=== PATIENT | female | born 1950 | race Caucasian/White ===

== ENCOUNTER 2021-07-18 00:33 | Inpatient (IN) ==
[2021-07-18] MEDS ORDERED: Naloxone 0.4 MG/ML INJ IVP PRN (03:06)
[2021-07-18] MEDS ORDERED: Sodium Bicarbonate 50 MEQ in 0.45 % Sodium Chloride 1,000 ML IVC SCH (04:30)
[2021-07-18] MEDS ORDERED: Tocilizumab 80 MG/4 ML MLS IVPB ONE (05:00)
[2021-07-18 05:20] LABS: Mean Platelet Volume 12.4 fL (9.4-12.4); Red Cell Distribution Width 14.2 % (11.5-14.5)
[2021-07-18 05:22] LABS: Basophils % 0.1 %; Hemoglobin 10.6 g/dL (11.5-15.4); Immature Granulocytes % 0.6 % (0-4); Lymphocytes # 1.4 K/mcL (0.6-4.6); Lymphocytes % 19.1 %; Mean Corpuscular HGB Conc 31.2 g/dL (31.6-35.5); Mean Corpuscular Hemoglobin 26.4 pg (28.0-33.3); Mean Corpuscular Volume 84.6 fL (83.0-100.0); Monocytes # 0.7 K/mcL (0.0-1.3); Monocytes % 9.3 %; Neutrophils # 5.1 K/mcL (1.6-8.9); Nucleated Red Blood Cells 0.3 /100 WBC (0); Red Blood Count 4.02 M/mcL (3.82-4.97); Segmented Neutrophils % 70.9 %; White Blood Count 7.2 K/mcL (4.3-11.1)
[2021-07-18 05:24] LABS: Platelet Count 69 K/mcL (140-400)
[2021-07-18] MEDS: Sodium Bicarbonate 50 MEQ in 0.45 % Sodium Chloride 1,000 ML IVC SCH (05:43)
[2021-07-18 05:44] LABS: Troponin I 0.06 ng/mL (< 0.04)
[2021-07-18 06:00] LABS: Blood Urea Nitrogen > 130 mg/dL (8-23); Calcium 7.8 mg/dL (8.6-10.3); Carbon Dioxide 14 mEq/L (23-29); Chloride 108 mEq/L (98-107); Creatine Kinase 1494 Units/L (30-223); Glucose 116 mg/dL (70-105); Potassium 3.7 mEq/L (3.5-5.1); Sodium 137 mEq/L (136-145); Thyroid Stimulating Hormone < 0.010 mcIU/mL (0.340-5.600); Uric Acid 16.8 mg/dL (2.3-7.6); eGFR For African Americans 7 (> 60); eGFR For Non-African Americans 6 (> 60)
[2021-07-18 06:09] LABS: VBG HCO3 14 mEq/L (21-27); VBG PCO2 31 mmHg (41-51); VBG PH 7.26 pH Units (7.32-7.42); VBG PO2 176 mmHg (25-50)
[2021-07-18] MEDS ORDERED: Dextrose Gel 15 GM/37.5 ML TUBE PO PRN ×2 (06:09)
[2021-07-18] MEDS ORDERED: D5% in Water 1,000 ML IVC PRN (06:09)
[2021-07-18] MEDS ORDERED: *HR* Dextrose 50 % in Water (Syg) 50 ML SYRINGE IVP PRN (06:09)
[2021-07-18 06:15] LABS: Fibrinogen 349 mg/dL (169-393)
[2021-07-18 06:16] LABS: D-Dimer 1684 ng/mLFEU (0-500)
[2021-07-18 06:43] LABS: Bacteria,Urine Few per hpf (None-Few); Bilirubin,Urine Negative (Negative); Blood,Urine Moderate (Negative); Clarity,Urine Ex.Turbid (Clear); Color,Urine Yellow (Yellow); Glucose,Urine (UA) Normal (Normal); Ketones,Urine Negative (Negative); Leukocyte Esterase,Urine Large (Negative); Mucus,Urine Few per lpf (None-Few); Nitrite,Urine Negative (Negative); PH,Urine 5.5 pH Units (5.0-8.0); Protein,Urine 70 mg/dL (Neg-Trace); RBC,Urine 30-50 per hpf (0-3); Specific Gravity,Urine 1.014 (1.010-1.025); Urobilinogen,Urine Normal (Normal); WBC,Urine TNTC per hpf (0-3)
[2021-07-18 06:48] LABS: Protein/Creatinine Ratio,Urine 0.96 mg/mg (0.00-0.20); Sodium, Urine 33.5 mEq/L
[2021-07-18 07:04] LABS: Albumin 2.9 g/dL (3.5-5.7); Bilirubin,Direct 0.2 mg/dL (0.0-0.2); Bilirubin,Indirect 0.3 mg/dL (0.0-1.0); Bilirubin,Total 0.5 mg/dL (0.3-1.0); Globulin 2.8 g/dL (2.4-3.5); Total Protein 5.7 g/dL (6.4-8.9)
[2021-07-18] MEDS ORDERED: Insulin LISPRO 300 UNITS/3 ML VIAL SUBQ SCH ×2 (07:30→21:00)
[2021-07-18] MEDS ORDERED: dexAMETHasone 4 MG TABLET PO SCH (09:00)
[2021-07-18 09:51] LABS: Albumin 2.8 g/dL (3.5-5.7); Bilirubin,Total 0.5 mg/dL (0.3-1.0); Calcium 7.8 mg/dL (8.6-10.3); Globulin 2.9 g/dL (2.4-3.5); Potassium 3.7 mEq/L (3.5-5.1); Total Protein 5.7 g/dL (6.4-8.9)
[2021-07-18 11:04] LABS: Estimated Average Glucose 140 mg/dl; Hemoglobin A1C 6.5 %
[2021-07-18] MEDS: Sodium Bicarbonate 150 MEQ in D5% in Water 1,000 ML IVC SCH (14:16)
[2021-07-18] MEDS: *HR* Heparin 5,000 UNIT/ML VIAL SQ SCH ×2 (14:17→20:17)
[2021-07-19] MEDS ORDERED: Acetaminophen 325 MG TABLET PO PRN (00:32)
[2021-07-19] MEDS: Sodium Bicarbonate 150 MEQ in D5% in Water 1,000 ML IVC SCH ×2 (01:19→18:15)
[2021-07-19 04:44] LABS: Bilirubin,Urine Negative (Negative); Blood,Urine Small (Negative); Clarity,Urine Clear (Clear); Color,Urine Colorless (Yellow); Glucose,Urine (UA) Normal (Normal); Ketones,Urine Negative (Negative); Leukocyte Esterase,Urine Moderate (Negative); Mucus,Urine Few per lpf (None-Few); Nitrite,Urine Negative (Negative); Protein,Urine 50 mg/dL (Neg-Trace); Specific Gravity,Urine 1.013 (1.010-1.025); Squamous Epithelial Cell,Urine Few per hpf (None-Few); Urobilinogen,Urine Normal (Normal); WBC,Urine 15-30 per hpf (0-3)
[2021-07-19] MEDS: *HR* Heparin 5,000 UNIT/ML VIAL SQ SCH ×3 (05:20→20:33)
[2021-07-19 06:53] LABS: Calcium 7.7 mg/dL (8.6-10.3); Potassium 3.2 mEq/L (3.5-5.1); Uric Acid 15.6 mg/dL (2.3-7.6)
[2021-07-19 11:58] LABS: Mean Platelet Volume 11.7 fL (9.4-12.4)
[2021-07-19 12:00] LABS: Basophils % 0.2 %; Hematocrit 34.1 % (35.3-44.9); Hemoglobin 11.2 g/dL (11.5-15.4); Immature Granulocytes % 1.3 % (0-4); Immature Platelets 6.2 % (1.1-6.1); Lymphocytes # 1.2 K/mcL (0.6-4.6); Lymphocytes % 20.1 %; Mean Corpuscular HGB Conc 32.8 g/dL (31.6-35.5); Mean Corpuscular Hemoglobin 26.5 pg (28.0-33.3); Mean Corpuscular Volume 80.6 fL (83.0-100.0); Monocytes # 0.6 K/mcL (0.0-1.3); Monocytes % 9.5 %; Neutrophils # 4.2 K/mcL (1.6-8.9); Red Blood Count 4.23 M/mcL (3.82-4.97); Red Cell Distribution Width 14.1 % (11.5-14.5); Segmented Neutrophils % 68.9 %; White Blood Count 6.1 K/mcL (4.3-11.1)
[2021-07-19] MEDS ORDERED: cefTRIAXone 1,000 MG in Water for inj. (sterile) 10 ML IVP SCH (12:00)
[2021-07-19] MEDS ORDERED: cefTRIAXone 1,000 MG in 0.9 % Sodium Chloride Mini Bag 100 ML IVPB SCH (12:00)
[2021-07-19 12:01] LABS: Platelet Count 91 K/mcL (140-400)
[2021-07-20] MEDS: *HR* Heparin 5,000 UNIT/ML VIAL SQ SCH ×3 (05:06→20:19)
[2021-07-20] MEDS: Sodium Bicarbonate 150 MEQ in D5% in Water 1,000 ML IVC SCH (05:06)
[2021-07-20 06:10] LABS: Basophils % 0.2 %; Eosinophils % 0.2 %; Hematocrit 35.1 % (35.3-44.9); Hemoglobin 11.7 g/dL (11.5-15.4); Immature Granulocytes % 1.3 % (0-4); Lymphocytes # 1.2 K/mcL (0.6-4.6); Lymphocytes % 22.6 %; Mean Corpuscular HGB Conc 33.3 g/dL (31.6-35.5); Mean Corpuscular Hemoglobin 27.5 pg (28.0-33.3); Mean Corpuscular Volume 82.4 fL (83.0-100.0); Mean Platelet Volume 11.7 fL (9.4-12.4); Monocytes # 0.6 K/mcL (0.0-1.3); Monocytes % 10.7 %; Neutrophils # 3.4 K/mcL (1.6-8.9); Platelet Count 108 K/mcL (140-400); Red Blood Count 4.26 M/mcL (3.82-4.97); White Blood Count 5.2 K/mcL (4.3-11.1)
[2021-07-20 06:34] LABS: Calcium 7.9 mg/dL (8.6-10.3); Potassium 3.2 mEq/L (3.5-5.1)
[2021-07-20 06:39] LABS: Platelet Estimate Decreased (Normal); Reactive Lymphocytes Present (Not Present)
[2021-07-20] MEDS: carvediloL 25 MG TABLET PO SCH ×2 (07:52→15:54)
[2021-07-20] MEDS: amLODIPine 5 MG TABLET PO SCH (15:56)
[2021-07-20] MEDS ORDERED: Azithromycin 500 MG in D5% in Water 250 ML IVPB SCH (18:00)
[2021-07-20] MEDS ORDERED: cefTRIAXone 1,000 MG in Water for inj. (sterile) 10 ML IVP SCH (18:00)
[2021-07-20] MEDS ORDERED: Ipratropium/Albuterol Neb 3 ML IH SCH (22:00)
[2021-07-21] MEDS: *HR* Heparin 5,000 UNIT/ML VIAL SQ SCH (05:17)
[2021-07-21 05:56] LABS: Basophils % 0.2 %; Eosinophils % 0.8 %; Hematocrit 34.9 % (35.3-44.9); Hemoglobin 11.2 g/dL (11.5-15.4); Immature Granulocytes % 0.8 % (0-4); Lymphocytes # 1.4 K/mcL (0.6-4.6); Lymphocytes % 29.3 %; Mean Corpuscular HGB Conc 32.1 g/dL (31.6-35.5); Mean Corpuscular Hemoglobin 27.2 pg (28.0-33.3); Mean Corpuscular Volume 84.7 fL (83.0-100.0); Mean Platelet Volume 11.1 fL (9.4-12.4); Monocytes # 0.5 K/mcL (0.0-1.3); Monocytes % 11.3 %; Neutrophils # 2.8 K/mcL (1.6-8.9); Platelet Count 127 K/mcL (140-400); Red Blood Count 4.12 M/mcL (3.82-4.97); Red Cell Distribution Width 14.2 % (11.5-14.5); Segmented Neutrophils % 57.6 %; White Blood Count 4.8 K/mcL (4.3-11.1)
[2021-07-21 06:23] LABS: Calcium 8.1 mg/dL (8.6-10.3); Potassium 3.5 mEq/L (3.5-5.1)
[2021-07-21] MEDS: carvediloL 25 MG TABLET PO SCH ×2 (09:20→18:05)
[2021-07-21] MEDS: D5% in Water 1,000 ML IVC SCH ×2 (09:20→20:52)
[2021-07-21] MEDS: amLODIPine 5 MG TABLET PO SCH (09:20)
[2021-07-21] MEDS: Lactobacillus 1 EACH CAP.SPRINK PO SCH ×2 (09:27→20:52)
[2021-07-21] MEDS ORDERED: Isovue-370 500 ML BOTTLE IVP ONE (11:51)
[2021-07-21] MEDS ORDERED: *HR* Heparin 5,000 UNIT/ML VIAL IVP PRN ×2 (12:40)
[2021-07-21] MEDS ORDERED: *HR* Heparin 5,000 UNIT/ML VIAL IVP ONE (12:40)
[2021-07-21] MEDS: Piperacillin/Tazobactam 3.375 GM in 0.9 % Sodium Chloride Mini Bag 100 ML IVPB SCH ×2 (14:12→23:13)
[2021-07-21 16:53] LABS: Hematocrit 35.3 % (35.3-44.9); Mean Corpuscular HGB Conc 31.2 g/dL (31.6-35.5); Mean Corpuscular Hemoglobin 26.8 pg (28.0-33.3); Mean Corpuscular Volume 85.9 fL (83.0-100.0); Mean Platelet Volume 10.9 fL (9.4-12.4); Platelet Count 133 K/mcL (140-400); Red Blood Count 4.11 M/mcL (3.82-4.97); Red Cell Distribution Width 14.3 % (11.5-14.5); White Blood Count 4.7 K/mcL (4.3-11.1)
[2021-07-21 17:00] LABS: Heparin anti-factor XA UFH < 0.04 IU/mL (0.30-0.70); INR 1.3; Prothrombin Time 14.7 Seconds (9.4-12.1)
[2021-07-21] MEDS: Sodium Bicarbonate 50 MEQ in 0.45 % Sodium Chloride 1,000 ML IVC SCH (19:21)
[2021-07-21] MEDS: Heparin 25,000UNIT/250ML 1/2NS 25,000 UNIT/250 ML IV.SOLN IVC SCH (20:51)
[2021-07-22 03:41] LABS: Basophils % 0.2 %; Eosinophils # 0.1 K/mcL (0.0-0.6); Eosinophils % 2.1 %; Hematocrit 35.2 % (35.3-44.9); Hemoglobin 10.8 g/dL (11.5-15.4); Immature Granulocytes % 0.9 % (0-4); Lymphocytes # 1.8 K/mcL (0.6-4.6); Lymphocytes % 31.2 %; Mean Corpuscular HGB Conc 30.7 g/dL (31.6-35.5); Mean Corpuscular Hemoglobin 26.5 pg (28.0-33.3); Mean Corpuscular Volume 86.3 fL (83.0-100.0); Monocytes # 0.5 K/mcL (0.0-1.3); Monocytes % 8.6 %; Platelet Count 142 K/mcL (140-400); Red Blood Count 4.08 M/mcL (3.82-4.97); White Blood Count 5.7 K/mcL (4.3-11.1)
[2021-07-22 03:45] LABS: Calcium 8.1 mg/dL (8.6-10.3); Potassium 3.4 mEq/L (3.5-5.1)
[2021-07-22 03:53] LABS: Heparin anti-factor XA UFH 0.73 IU/mL (0.30-0.70)
[2021-07-22 04:17] LABS: Neutrophils # 3.3 K/mcL (1.6-8.9)
[2021-07-22 06:50] LABS: Platelet Estimate Normal (Normal); Reactive Lymphocytes Present (Not Present)
[2021-07-22] MEDS: carvediloL 25 MG TABLET PO SCH ×2 (09:07→17:00)
[2021-07-22] MEDS: amLODIPine 5 MG TABLET PO SCH (09:07)
[2021-07-22] MEDS: Lactobacillus 1 EACH CAP.SPRINK PO SCH ×2 (09:11→21:30)
[2021-07-22] MEDS: Piperacillin/Tazobactam 3.375 GM in 0.9 % Sodium Chloride Mini Bag 100 ML IVPB SCH ×3 (12:05→23:45)
[2021-07-23 02:04] LABS: Basophils % 0.2 %; Eosinophils # 0.1 K/mcL (0.0-0.6); Eosinophils % 1.8 %; Hematocrit 32.7 % (35.3-44.9); Hemoglobin 10.1 g/dL (11.5-15.4); Immature Granulocytes % 0.4 % (0-4); Lymphocytes # 1.6 K/mcL (0.6-4.6); Lymphocytes % 34.5 %; Mean Corpuscular HGB Conc 30.9 g/dL (31.6-35.5); Mean Corpuscular Hemoglobin 26.6 pg (28.0-33.3); Mean Corpuscular Volume 86.1 fL (83.0-100.0); Mean Platelet Volume 10.9 fL (9.4-12.4); Monocytes # 0.5 K/mcL (0.0-1.3); Monocytes % 10.2 %; Neutrophils # 2.4 K/mcL (1.6-8.9); Platelet Count 135 K/mcL (140-400); Red Cell Distribution Width 13.8 % (11.5-14.5); Segmented Neutrophils % 52.9 %; White Blood Count 4.5 K/mcL (4.3-11.1)
[2021-07-23 02:26] LABS: Calcium 7.9 mg/dL (8.6-10.3); Potassium 3.2 mEq/L (3.5-5.1)
[2021-07-23] MEDS: Heparin 25,000UNIT/250ML 1/2NS 25,000 UNIT/250 ML IV.SOLN IVC SCH (03:11)
[2021-07-23] MEDS: Piperacillin/Tazobactam 3.375 GM in 0.9 % Sodium Chloride Mini Bag 100 ML IVPB SCH ×2 (05:40→13:42)
[2021-07-23] MEDS ORDERED: D5% in 0.9% NACL 1,000 ML IVC SCH (08:30)
[2021-07-23] MEDS: amLODIPine 5 MG TABLET PO SCH (10:01)
[2021-07-23] MEDS: carvediloL 25 MG TABLET PO SCH ×2 (10:03→18:24)
[2021-07-23] MEDS: Lactobacillus 1 EACH CAP.SPRINK PO SCH ×2 (10:04→21:05)
[2021-07-24] MEDS: Piperacillin/Tazobactam 3.375 GM in 0.9 % Sodium Chloride Mini Bag 100 ML IVPB SCH ×3 (05:10→21:26)
[2021-07-24] MEDS: carvediloL 25 MG TABLET PO SCH ×2 (08:26→18:12)
[2021-07-24] MEDS: Lactobacillus 1 EACH CAP.SPRINK PO SCH ×2 (08:26→23:05)
[2021-07-24] MEDS: amLODIPine 5 MG TABLET PO SCH (08:26)
[2021-07-24 13:57] LABS: Hematocrit 32.3 % (35.3-44.9); Hemoglobin 10.1 g/dL (11.5-15.4); Mean Corpuscular HGB Conc 31.3 g/dL (31.6-35.5); Mean Corpuscular Hemoglobin 27.3 pg (28.0-33.3); Mean Corpuscular Volume 87.3 fL (83.0-100.0); Mean Platelet Volume 11.2 fL (9.4-12.4); Platelet Count 146 K/mcL (140-400); Red Cell Distribution Width 13.7 % (11.5-14.5)
[2021-07-24 14:41] LABS: Calcium 7.9 mg/dL (8.6-10.3); Potassium 3.3 mEq/L (3.5-5.1)
[2021-07-24] MEDS: D5% in Water 1,000 ML IVC SCH (14:57)
[2021-07-24] MEDS: *HR* Heparin 5,000 UNIT/ML VIAL SQ SCH (18:13)
[2021-07-25] MEDS: Piperacillin/Tazobactam 3.375 GM in 0.9 % Sodium Chloride Mini Bag 100 ML IVPB SCH ×2 (04:25→11:38)
[2021-07-25] MEDS: D5% in Water 1,000 ML IVC SCH (04:27)
[2021-07-25 05:23] LABS: Calcium 7.9 mg/dL (8.6-10.3)
[2021-07-25] MEDS: *HR* Heparin 5,000 UNIT/ML VIAL SQ SCH (05:54)
[2021-07-25] MEDS ORDERED: Isovue-370 500 ML BOTTLE IVP ONE (07:31)
[2021-07-25 08:19] VITALS: PULSE 84
[2021-07-25] MEDS: carvediloL 25 MG TABLET PO SCH (10:03)
[2021-07-25] MEDS: Lactobacillus 1 EACH CAP.SPRINK PO SCH (10:04)
[2021-07-25] MEDS: amLODIPine 5 MG TABLET PO SCH (10:04)
[2021-07-25 11:54] VITALS: BP 159/69; TEMP 98.1; O2SAT 95
== END 2021-07-25 15:50 | disposition home health service (06) | DRG 871 ==
LOC: 3ANU → SUATTDRO 03:03
PROVIDERS: ADMIT Internal Medicine; ATTEND Internal Medicine